=== PATIENT | male | born 1990 | race American Indian/Alaskan Native ===

== ENCOUNTER 2017-07-01 11:27 | Emergency (ER) | payer SELFPAY ==
[2017-07-01 11:53] VITALS: BP 133/85
[2017-07-01] MEDS ORDERED: NACL 0.9% 1000 ML 1,000 ML IV ONE (11:53)
[2017-07-01 13:19] LABS: Hematocrit 47.5 % (35.5-45.6); Hemoglobin 15.8 gm/dl (11.8-15.2); Mean Corpuscular HGB Conc 33 % (32-34); Mean Corpuscular Hemoglobin 28 pg (28-32); Mean Corpuscular Volume 83 fl (84-94); Platelet Count 220 K/mm3 (140-440); Red Blood Count 5.74 M/mm3 (3.65-5.03); Red Cell Distribution Width 13.8 % (13.2-15.2); White Blood Count 3.1 K/mm3 (4.5-11.0)
[2017-07-01 13:31] LABS: INR 0.96 (0.87-1.13)
[2017-07-01 13:32] LABS: Partial Thromboplastin Time 33.1 Sec. (24.2-36.6)
[2017-07-01 13:34] LABS: Alanine Aminotransferase 35 units/L (7-56); Albumin 4.5 g/dL (3.9-5); Albumin/Globulin Ratio 1.1 %; Alkaline Phosphatase 60 units/L (35-129); Anion Gap 19 mmol/L; BUN/Creatinine Ratio 12; Blood Urea Nitrogen 14 mg/dL (9-20); Calcium 9.5 mg/dL (8.4-10.2); Carbon Dioxide 28 mmol/L (22-30); Chloride 97.7 mmol/L (98-107); Glucose 76 mg/dL (75-100); Lipase 20 units/L (13-60); Potassium 4.4 mmol/L (3.6-5.0); Sodium 140 mmol/L (137-145); Total Protein 8.6 g/dL (6.3-8.2)
[2017-07-01 15:02] LABS: Basophils % (Manual) 0 % (0.0-1.8); Blastocytes % (Manual) 0 %
[2017-07-01 15:03] LABS: Anisocytosis Few; Hypochromasia Few; Smudge Cells Few
[2017-07-01 15:04] LABS: Diff Status Complete
== END 2017-07-01 19:35 | disposition left against medical advice (07) ==
LOC: ED 11:27
DX: R10.9 Unspecified abdominal pain (principal); Z53.21 Procedure and treatment not carried out due to patient leaving prior to being seen by health care provider
CPT/HCPCS: 36415; 80053; 83690; 85007; 85025; 85610; 85730; 86850; 86900; 86901; 93005; 93010

== ENCOUNTER 2018-11-27 00:30 | Emergency (ER) | payer OTHER ==
[2018-11-27] MEDS ORDERED: NACL 0.9% 1000 ML 1,000 ML IV ONE (00:41)
[2018-11-27 01:22] LABS: Basophils % (Auto) 1.2 % (0.0-1.8); Eosinophils # (Auto) 0.1 K/mm3 (0.0-0.4); Eosinophils % (Auto) 2.1 % (0.0-4.3); Hematocrit 42.4 % (35.5-45.6); Hemoglobin 14.5 gm/dl (11.8-15.2); Lymphocytes # (Auto) 1.2 K/mm3 (1.2-5.4); Lymphocytes % (Auto) 33.1 % (13.4-35.0); Mean Corpuscular HGB Conc 34 % (32-34); Mean Corpuscular Volume 87 fl (84-94); Monocytes # (Auto) 0.4 K/mm3 (0.0-0.8); Monocytes % (Auto) 11.2 % (0.0-7.3); Platelet Count 215 K/mm3 (140-440); Red Blood Count 4.86 M/mm3 (3.65-5.03)
[2018-11-27 01:44] LABS: Alanine Aminotransferase 22 units/L (7-56); Albumin 4.5 g/dL (3.9-5); BUN/Creatinine Ratio 11; Blood Urea Nitrogen 15 mg/dL (9-20); Calcium 9.2 mg/dL (8.4-10.2); Hemolysis Index 33
--- NOTE | 2018-11-27 02:29 | Emergency Department Report ---
ED General Adult HPI - General Chief complaint: Abdominal Pain Stated complaint: ABD PAIN Time Seen by Provider: 11/27/18 02:26 Source: patient Mode of arrival: Ambulatory Limitations: No Limitations - History of Present Illness Initial comments: 28-year-old male medical history presents complaining of abdominal pain that began with sudden onset tonight. Patient states the pain was approximately 9 PM. Patient states that he vomited 2 days ago and denies any hematemesis. Patient denies any recent travel. Patient denies any sick contacts. Patient denies any diarrhea. He states his last bowel movement was 2 days ago. Patient denies any hematochezia. He states the pain is 8 out of 10. Patient states the pain is in his right lower quadrant radiates to his back. Severity scale (0 -10): 8 - Related Data Previous Rx's Medication Instructions Recorded Last Taken Type traMADol [Ultram] 50 mg PO Q6HR PRN #20 tablet 11/27/18 Unknown Rx Allergies Allergy/AdvReac Type Severity Reaction Status Date / Time No Known Allergies Allergy Unverified 07/01/17 11:48 ED Review of Systems ROS: Stated complaint: ABD PAIN Other details as noted in HPI Constitutional: denies: chills, fever Eyes: denies: eye pain, eye discharge, vision change ENT: denies: ear pain, throat pain Respiratory: denies: cough, shortness of breath, wheezing Cardiovascular: denies: chest pain, palpitations Endocrine: no symptoms reported Gastrointestinal: abdominal pain, nausea, vomiting. denies: diarrhea Genitourinary: denies: urgency, dysuria Musculoskeletal: denies: back pain, joint swelling, arthralgia Skin: denies: rash, lesions Neurological: denies: headache, weakness, paresthesias Psychiatric: denies: anxiety, depression Hematological/Lymphatic: denies: easy bleeding, easy bruising ED Past Medical Hx - Past Medical History Previous Medical History?: Yes Additional medical history: gastroenteritis - Surgical History Past Surgical History?: No - Social History Smoking Status: Never Smoker Substance Use Type: Alcohol - Medications Home Medications: Home Medications Medication Instructions Recorded Confirmed Last Taken Type traMADol [Ultram] 50 mg PO Q6HR PRN #20 tablet 11/27/18 Unknown Rx ED Physical Exam - General Limitations: No Limitations General appearance: alert, other (mildly uncomfortable; mild distress) - Head Head exam: Present: atraumatic, normocephalic - Eye Eye exam: Present: normal appearance - ENT ENT exam: Present: mucous membranes moist - Neck Neck exam: Present: normal inspection - Respiratory Respiratory exam: Present: normal lung sounds bilaterally. Absent: respiratory distress - Cardiovascular Cardiovascular Exam: Present: regular rate, normal rhythm. Absent: systolic mur mur, diastolic murmur, rubs, gallop - GI/Abdominal GI/Abdominal exam: Present: soft, tenderness (noted in right upper quadrant as well as right lower quadrant), normal bowel sounds. Absent: guarding, rebound - Rectal Rectal exam: Present: deferred - Extremities Exam Extremities exam: Present: normal inspection - Back Exam Back exam: Present: normal inspection - Neurological Exam Neurological exam: Present: alert, oriented X3 - Psychiatric Psychiatric exam: Present: normal affect, normal mood - Skin Skin exam: Present: warm, dry, intact, normal color. Absent: rash ED Course Vital Signs 11/27/18 11/27/18 11/27/18 00:39 01:50 02:00 Temperature 97.9 F Pulse Rate 83 64 67 Respiratory 18 17 16 Rate Blood Pressure 156/98 131/95 O2 Sat by Pulse 97 97 Oximetry 11/27/18 11/27/18 11/27/18 02:15 02:30 02:45 Temperature Pulse Rate 64 65 69 Respiratory 15 15 14 Rate Blood Pressure 131/93 140/116 143/93 O2 Sat by Pulse 100 100 100 Oximetry 11/27/18 11/27/18 11/27/18 03:00 03:15 03:30 Temperature Pulse Rate 83 68 75 Respiratory 19 18 12 Rate Blood Pressure 143/93 138/87 138/93 O2 Sat by Pulse 100 100 97 Oximetry 11/27/18 11/27/18 11/27/18 03:45 04:00 04:16 Temperature Pulse Rate 68 62 65 Respiratory 13 12 10 L Rate Blood Pressure 124/85 121/72 127/77 O2 Sat by Pulse 97 99 100 Oximetry 11/27/18 11/27/18 11/27/18 04:46 05:00 05:16 Temperature Pulse Rate 69 58 L 58 L Respiratory 17 12 11 L Rate Blood Pressure O2 Sat by Pulse 100 100 100 Oximetry ED Medical Decision Making - Lab Data Result diagrams: 11/27/18 00:50 11/27/18 00:50 - Medical Decision Making Patient received morphine as well as Zofran therapy while here in emergency department. Patient also received a liter bolus of IV fluids. Patient's pain is improved while here in the emergency department patient's CT which shows no acute intra-abdominal pathology. Patient be discharged with Ultram therapy for. Pain relief. Patient also be given Pepcid for acid relief. - Differential Diagnosis dehydration; electrolyte abnormality; anemia; pancreatitis Critical care attestation.: If time is entered above; I have spent that time in minutes in the direct care of this critically ill patient, excluding procedure time. ED Disposition Clinical Impression: Abdominal pain, Vomiting Disposition: DC-01 TO HOME OR SELFCARE Is pt being admited?: No Does the pt Need Aspirin: No Condition: Stable Instructions: Abdominal Pain (ED) Prescriptions: traMADol [Ultram] 50 mg PO Q6HR PRN #20 tablet PRN Reason: Pain Referrals: LACEY BOYD MD [Primary Care Provider] - 3-5 Days Time of Disposition: 05:43 Print Language: SPANISH
[2018-11-27] MEDS ORDERED: ZOFRAN IV ONE (02:37)
[2018-11-27] MEDS ORDERED: MORPHINE IV ONE (02:37)
[2018-11-27 03:12] LABS: Bilirubin,Urine NEG (Negative); Blood,Urine NEG (Negative); Color,Urine Yellow (Yellow); Mucus,Urine FEW /HPF; Protein,Urine <15 mg/dL mg/dL (Negative); Urobilinogen,Urine < 2.0 mg/dL (<2.0); WBC,Urine < 1.0 /HPF (0.0-6.0)
--- NOTE | 2018-11-27 04:58 | Cat Scan Report ---
PROCEDURE: CT ABDOMEN PELVIS W CON TECHNIQUE: Routine axial imaging was obtained of the abdomen and pelvis following the intravenous in jection of iodinated contrast. Delayed imaging was obtained of the kidneys ureters and bladder. Sagit tiesha and coronal reconstructions were reviewed. HISTORY: rlq abdominal pain COMPARISONS: None FINDINGS: The lung bases are clear. Pleural fluid is not seen. The liver, gallbladder, biliary tree, pancreas, spleen, and adrenal glands appear normal. The kidneys show no evidence of stones or hydronephrosis. The right kidney is pelvic in position. The abdominal aorta is normal in caliber. The portal vein enhances normally. The bowel loops are normal in caliber and course. The appendix appears normal. There is no evidence of any inflammatory process in the righ t lower quadrant. There is no evidence of free fluid or adenopathy. In the pelvis the prostate gland and bladder appear normal. The skeletal structures appear well-maintained. IMPRESSION: No acute process in the abdomen and pelvis. Normal appendix.. This document is electronically signed by Wil Pal MD., November 27 2018 04:56:31 AM ET
[2018-11-27 05:31] VITALS: BP 127/77
== END 2018-11-27 06:33 | disposition home or self-care (01) ==
LOC: ED 00:33
DX: R10.31 Right lower quadrant pain (principal); R11.2 Nausea with vomiting, unspecified
CPT/HCPCS: 36415; 74177; 80053; 81001; 83690; 85025; 96361; 96374; 96375; 99284; J2270; J2405; J7030; Q9967